=== PATIENT | female | born 1990 | race Caucasian/White ===

== ENCOUNTER → 2024-08-04 | Emergency (ER) | payer MEDICARE, MEDICAID ==
[~2024-08-04] VITALS: Ht 157.5 cm; Wt 70.0 kg
[~2024-08-04] MED LIST: BENZ-247 PO; DIPH-1243 PO; HYDR50CA7 PO; OLAN10TA74 PO; OXCA300T70 PO; TRAZ-257 PO
[2024-08-04 05:42] VITALS: TEMP 98
[2024-08-04 09:30] VITALS: BP 102/71; PULSE 65; RESP 16; O2SAT 99
== END | disposition home or self-care (01) ==
LOC: EMS 05:26
DX: S63.651A Sprain of metacarpophalangeal joint of left index finger, initial encounter (principal); S63.653A Sprain of metacarpophalangeal joint of left middle finger, initial encounter; F20.9 Schizophrenia, unspecified; Z79.899 Other long term (current) drug therapy; W19.XXXA Unspecified fall, initial encounter; Y93.89 Activity, other specified; Y92.89 Other specified places as the place of occurrence of the external cause; Y99.8 Other external cause status
CPT/HCPCS: 99284; 73110-TC; 73130-TC; Z7502